=== PATIENT | female | born 1980 | race Caucasian/White ===

== ENCOUNTER 2016-03-10 12:39 | Emergency (ER) | payer OTHER ==
[2016-03-10 13:27] VITALS: BP 92/50; PULSE 54; RESP 16; TEMP 98.4; O2SAT 100
--- NOTE | 2016-03-10 14:26 | UCPHY ---
H & P Time Seen by Provider: 03/10/16 13:30 Patient Type: Established HPI/ROS: HPI Sore throat. 35-year-old female by private vehicle. This patient reports that her son had a gastrointestinal illness. She reports that over the last several days she has had some nausea and diarrhea. This has resolved. She developed a sore throat last night and feels fatigued. She states that she has some white spots in the back of her throat. She is not having a hard time swallowing. No voice changes. No neck pain. No other complaints. ROS: Constitutional: No fever, no chills. She has been feeling fatigued. ENT: As above. No nasal congestion or rhinorrhea. Respiratory: No cough. No shortness of breath. Cardiac: No chest pain, no palpitations. Gastrointestinal: No abdominal pain, no vomiting, no diarrhea currently. As above. Genitourinary: No hematuria. No dysuria or increased frequency with urination. Musculoskeletal: No back pain. No neck pain. No myalgias or arthralgias. Skin: No rashes. Neurological: No headache. No focal weakness or altered sensation. Past medical history: None. Social history: Nonsmoker. Physical Exam: General Appearance: Alert, no distress. This patient is responding to questions appropriately and in full sentences. This patient appears well- hydrated and well-nourished. Eyes: Pupils equal and round no pallor or injection. No lid edema, erythema or injection. ENT, Mouth: Mucous membranes are moist. The pharyngeal tissues are unremarkable. No edema or swelling. No asymmetry suggestive of abscess. She has some scant white exudates on the posterior pharynx. No significant erythema. Respiratory: There are no retractions, lungs are clear to auscultation with good air movement bilaterally. Cardiovascular: Regular rate and rhythm. No murmur. Gastrointestinal: Abdomen is soft and nontender, no masses, bowel sounds normal. No focal tenderness at McBurney's point. No Prieto sign. Neurological: Motor sensory function is grossly intact. Cranial nerves are normal. Gait is normal. Skin: Warm and dry, no rashes. Musculoskeletal: Neck is supple and nontender. Extremities are symmetrical. All joints range without pain or impingement. Psychiatric: No agitation. No depression. Database: Rapid strep-negative. EKG: Imaging: Procedures: Emergency department course: Results of rapid strep discussed with her. Explained that we would have a culture results as well in a couple of days and we would contact her if that was positive. For the time being I will not put her on antibiotics. I have recommended rest, fluids and ibuprofen. She endorses this plan. Follow-up and return to emergency department precautions have been discussed with her. All of her questions were answered. She was discharged in good condition. Differential Diagnosis: The differential diagnosis on this patient includes but is not limited to viral syndrome, viral pharyngitis. streptococcal pharyngitis, fungal infection, retropharyngeal abscess, peritonsillar abscess, epiglottitis, unlikely. This represents a partial list of diagnoses considered. These considerations are based on history, physical exam, past history, reassessment and diagnostic testing. Smoking Status: Never smoked Constitutional: Initial Vital Signs Temperature (C) 36.9 C 03/10/16 13:24 Heart Rate 54 L 03/10/16 13:24 Respiratory Rate 16 03/10/16 13:24 Blood Pressure 92/50 L 03/10/16 13:24 O2 Sat (%) 100 03/10/16 13:24 O2 Delivery Mode Room Air Allergies/Adverse Reactions: No Known Allergies Allergy (Verified 02/19/15 09:36) Home Medications: Medication Instructions Recorded NK [No Known Home Meds] 03/10/16 MDM/Departure - Depart Disposition: Home, Routine, Self-Care Clinical Impression: Pharyngitis, Viral infection Condition: Good Instructions: Pharyngitis (ED) Additional Instructions: Read and follow provided instructions. Follow-up with your primary care physician in 1-2 days for re-evaluation as needed. Ibuprofen dosin mg every 6 hours with meals for the next 3 days only. Return to the emergency department for worsening worsening sore throat, difficulty swallowing, neck pain, high fever or other serious concerns. Referrals: Tete Dennis MD [Primary Care Provider] - As per Instructions - PQRS PQRS Measurement: Not applicable.
== END 2016-03-10 14:33 | disposition home or self-care (01) ==
LOC: CED 12:39
DX: J02.9 Acute pharyngitis, unspecified (principal)
CPT/HCPCS: 87880-PO; 99214-PO; G0463-PO